=== PATIENT | male | born 1985 | race Caucasian/White ===

== ENCOUNTER 2022-01-22 16:28 | Outpatient (CLI) | payer BC, SELFPAY ==
--- NOTE | ~2022-01-22 | US_ITS ---
US venous doppler [facility] DATE: 01/22/2022 17:41 INDICATION: Left calf pain and swelling TECHNIQUE: Real-time and color flow imaging and Doppler analysis of the left lower leg COMPARISON: None FINDINGS: The left greater saphenous vein is patent. There is spontaneous and phasic flow and normal augmentation and color flow signal and normal compression of the deep veins of the left leg. IMPRESSION: No evidence of deep venous thrombosis of left leg Reviewed, dictated and finalized at [facility] Reviewed, dictated and finalized at [facility]. [facility]
== END 2022-01-22 16:29 | disposition home or self-care (01) ==
LOC: ANHIMG 16:39
PROVIDERS: PCP Family Medicine; Visit Provider Family Medicine
DX: M79.662 Pain in left lower leg (principal)
CPT/HCPCS: 93971

== ENCOUNTER 2022-08-08 16:53 | Emergency (ER) | payer BC, SELFPAY ==
[2022-08-08 17:04] VITALS: BP 153/95; PULSE 92; RESP 20; TEMP 36.8; O2SAT 98
--- NOTE | 2022-08-08 17:10 | ED.GENADULT ---
HPI - General Adult General Chief complaint: Upper Respiratory Infection Stated complaint: Sinus,Congestion History of Present Illness HPI narrative: 36 y/o male. PMHx Allergies. Presents to [facility] clinic today with acute complaints of increased nasal congestion, purulent nasal discharge, and frontal SOLORIO worsening > the past 1 week. He describes a 'yellow and green' nasal discharge. 'Pressure' type sensation to maxillary sinus and frontal facial regions. -No fevers. -Not the worst SOLORIO he has experienced historically, and no focal weakness. -Denies cough, dyspnea, wheezing. -Has had subtherapeutic reliefs w/home OTC remedies. 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 He is concerned for lingering, now worsening issues. No additional acute c/o upon PE. Related Data Allergies Allergy/AdvReac Type Severity Reaction Status Date / Time No Known Allergies Allergy Verified 08/08/22 17:09 Review of Systems Review of Systems: CONSTITUTIONAL: Positive SOLORIO. Denies fever, chills, sweats. EYES: Denies visual changes, redness, discharge. ENT: Positive rhinorrhea, congestion. No sore throat, otalgia. CARDIOVASCULAR: Denies chest pain, palpitations, edema. RESPIRATORY: Denies dyspnea, wheezing, cough GASTROINTESTINAL: Denies abdominal pain, nausea, vomiting, diarrhea. GENITOURINARY: Denies dysuria, hematuria, abnormal discharge SKIN: Denies rash or itching. MUSCULOSKELETAL: Denies acute back pain, joint pain, or myalgia. NEUROLOGIC: Denies numbness, or focal weakness. PSYCHIATRIC: Denies anxiety or depression. Exam Narrative: GENERAL: This is a well-nourished, well-developed adult, in no apparent distress. HEAD: normocephalic. EYES: PERRL. EARS: External ears normal, auditory canals clear and without drainage, TMs normal. NOSE: External nose normal. Positive thick bilateral nasal congestion and discharge. No obstruction. THROAT: Mucous membranes moist, posterior pharynx erythematous. No exudates. NECK: Neck supple, non-tender. CARDIOVASCULAR: Regular rate and rhythm. RESPIRATORY: Clear to auscultation. Breath sounds equal bilaterally. GASTROINTESTINAL: Abdomen soft, non-tender. SKIN: warm, intact with no suspicious lesions or rash. NEURO: No focal neurologic deficits. 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 It is recommended that the patient call the primary care provider listed on their discharge instructions or a physician of their choice as soon as possible (within 1-2week) to arrange follow up for further evaluation of possible pre-hypertension or hypertension. Vital Signs Vital signs: Vital Signs Temperature 36.8 C 08/08/22 17:04 Pulse Rate 92 08/08/22 17:04 Respiratory Rate 20 08/08/22 17:04 Blood Pressure 153/95 H 08/08/22 17:04 Pulse Oximetry 98 08/08/22 17:04 Oxygen Delivery Room Air 08/08/22 17:04 Temperature 36.8 C 08/08/22 17:04 Pulse Rate 92 08/08/22 17:04 Respiratory Rate 20 08/08/22 17:04 Blood Pressure 153/95 H 08/08/22 17:04 Pulse Oximetry 98 08/08/22 17:04 Oxygen Delivery Room Air 08/08/22 17:04 The patient has been informed that they may have pre-hypertension or Hypertension based on a BP reading in the clinic. It is recommended that the patient call the primary care provider listed on their discharge instructions or a physician of their choice as soon as possible (within 1-2week) to arrange follow up for further evaluation of possible pre-hypertension or hypertension. Medical Decision Making MDM Narrative Medical decision making narrative: -Pertinents including pre-existing functional sinus compromise, S/P ENT surgery as OP historically. -S/S now > 1 week, consider bacterial components. -Cover w/Amoxicillin
== END 2022-08-08 17:17 | disposition home or self-care (01) ==
PROVIDERS: Emergency Provider Nurse Practitioner Adult Health; PCP Family Medicine
DX: J32.9 Chronic sinusitis, unspecified (principal); J06.9 Acute upper respiratory infection, unspecified
CPT/HCPCS: 99213; G0463